=== PATIENT | male | born 1945 | race Caucasian/White ===

== ENCOUNTER 2022-04-12 11:26 | Outpatient (CLI) | payer MEDICARE, SELFPAY ==
[2022-04-12 18:09] LABS: Chloride* 99 mmol/L (96-114)
[2022-04-12 18:10] LABS: Albumin* 3.8 g/dL (3.3-5.0); Potassium* 4.3 mmol/L (3.6-5.1); Sodium* 135 mmol/L (135-149)
[2022-04-12 18:12] LABS: Bilirubin Total* 0.3 mg/dL (0.1-1.5); Creatinine* 0.9 mg/dL (0.5-1.5); Estimated Glomerular Filt Rate 87 ml/min
[2022-04-12 18:13] LABS: Alanine Aminotransferase* 19 U/L (4-50); Alkaline Phosphatase* 125 U/L (40-150); Aspartate Amino Transferase* 25 U/L (12-35); Blood Urea Nitrogen* 15 mg/dL (7-30); Calcium* 9.1 mg/dL (8.4-10.6); Carbon Dioxide* 26 mmol/L (20-32); Glucose* 112 mg/dL (60-115); Total Protein* 6.4 g/dL (6.0-8.3)
[2022-04-12 18:59] LABS: PSA Diagnostic* < 0.06 ng/mL (0.10-4.00)
== END 2022-04-12 11:27 | disposition home or self-care (01) ==
PROVIDERS: PCP Internal Medicine; Visit Provider Family Medicine
DX: R53.83 Other fatigue (principal); C61 Malignant neoplasm of prostate; I10 Essential (primary) hypertension
CPT/HCPCS: 80053; 84153

== ENCOUNTER 2023-04-11 08:15 | Outpatient (CLI) | payer MEDICARE, SELFPAY | END 2023-04-11 08:16 | disposition home or self-care (01) | LOC: NFLDREF 04-12 06:26 | PROVIDERS: PCP Internal Medicine; Referring Provider Internal Medicine; Visit Provider Internal Medicine | DX: I10 Essential (primary) hypertension (principal); C61 Malignant neoplasm of prostate; G47.33 Obstructive sleep apnea (adult) (pediatric); Z13.6 Encounter for screening for cardiovascular disorders | CPT/HCPCS: 80053; 80061; 84153 ==

== ENCOUNTER 2024-05-09 08:35 | Outpatient (CLI) | payer MEDICARE, SELFPAY ==
--- OUTSIDE RECORDS SUMMARY | 2024-05-09 13:15 | XMS_ITS | Clinical Summary ---
Author Organization [employer] [facility] s & [facility] Address [place], [place] [address] Care Team Providers Care Press Tender Smoke Signal Name Role Phone Aamir Cross MD Primary Care Provider [phone] Allergies Active Allergy Reactions Criticality Noted Date Comments Ibuprofen Other - Describe In Comment Field 10/27/2013 ulcer ulcer Prednisone Other - Describe In Comment Field 10/27/2013 ulcers Other reaction(s): Other (see comments) ulcer Medications Medication Sig Dispensed Refills Start Date End Date Status losartan (COZAAR) 100 mg tablet 05/29/2015 Active clindamycin 1% (CLEOCIN-T) 1 % gel 05/01/2016 Active amoxicillin (AMOXIL) 500 mg capsule TAKE 4 CAPSULES BY MOUTH 1 HOUR BEFORE DENTAL APPOINTMENT 09/02/2021 Active ketoconazole 2% shampoo (NIZORAL) 2 % shampoo USE 1 APPLICATION TOPICALLY TWICE A WEEK NEEDED FOR FOLLICULITIS 06/29/2022 Active Vuity 1.25 % ophthalmic solution INSTILL 1 DROP IN RIGHT EYE THREE TIMES A DAY 06/15/2022 Active sulfacetamide, acne, 10 % susp 08/04/2021 Active clindamycin 1% (CLEOCIN-T) 1 % lotion APPLY TOPICALLY TO THE SCALP EVERY DAY NEEDED 03/06/2022 Active diltiazem CR (TIAZAC; TAZTIA XT) 360 mg capsule Take 360 mg by mouth once daily. 06/05/2022 Active fluocinonide 0.05 TOPICAL (LIDEX) 0.05 % external solution APPLY TO AFFECTED AREA(S) TWICE A DAY 06/29/2022 Active durable medical equipment (DME)Indications:D DD (degenerative disc disease), cervical,Cervical radiculopathy,Cerv ical myofascial pain syndrome Cervical Home Traction Unit Length of use: 99 months 1 Each 08/20/2023 Active tractionIndication s:DDD (degenerative disc disease), cervical,Cervical radiculopathy,Cerv ical myofascial pain syndrome Cervical traction home unit for home use for 99 months - The patient has a musculoskeletal or neurological impairment requiring traction equipment - The home cervical traction device has been demonstrated to the patient and the patient tolerated the selected device in PHYSICAL THERAPY - He will need greater than 20 pounds of cervical traction in the home setting. 1 Each 08/22/2023 Active Active Problems Problem Noted Date Diagnosed Date Elevated PSA 08/21/2016 Lumbar foraminal stenosis 05/22/2016 Spondylolisthesis of lumbosacral region 05/22/20 16 Lumbar radicular pain 05/22/2016 Benign non-nodular prostatic hyperplasia with lower urinary tract symptoms 10/27/2015 Erectile disorder, generalized, mild 10/27/2015 Hemorrhage of gastrointestinal tract, unspecifie d 11/16/2007 Iron deficiency anemia, unspecified 11/16/2007 Unspecified essential hypertension 11/16/2007 Encounters Date Type Department Care Team Description 04/07/2024 1:30 PM CDT Procedure Only [facility] [address] [place] [address] Verónica Pollock L Ac Acupuncture 04/07/2024 Travel 03/06/2024 10:00 AM CDT Procedure Only [facility] [address] [place] [address] Verónica Pollock L Ac Acupuncture 03/06/2024 Travel from Last 3 Months Immunizations Name Administration Dates Next Due Pneumococcal Poly,23-Valent (Pneumovax) 09/24/19 08 Social History Tobacco Use Types Packs/Day Years Used Date Smoking Tobacco: Former Smokeless Tobacco: Never Tobacco Cessation:Counseling Given: Yes Comments:quit in 1999 Alcohol Use Standard Drinks/Week Comments Not Asked 0 (1 standard drink = 0.6 oz pur e alcohol) Social Connections Answer Date Recorded Frequency of Communication with Friends and Fami ly 0 11/13/2023 Financial Resource Strain Answer Date R ecorded Difficulty of Paying Living Expenses 3 11/13/2023 Difficulty of Paying Living Expenses Not on file 11/13/2023 Food Insecurity Answer Date Recorded Worried About Running Out of Food in the Last Ye ar 1 11/13/2023 Transportation Needs Answer Date Record ed Lack of Transportation (Medical) 1 11/13/2023 Housing Stability Answer Date Recorded Unable to Pay for Housing in the Last Year 1 11/13/2023 Sex and Gender Information Value Date Recorded Sex Assigned at Not on file Gender Identity Not on file Sexual Orientation Not on file Obstetrics History Last Filed Vital Signs Vital Sign Reading Time Taken Comments Blood Pressure 113/66 06/21/2023 11:26 AM CDT Pulse 62 06/21/2023 11:26 AM CDT Temperature 36.7 ??C (98.1 ??F) 06/21/2023 11:26 AM C DT Respiratory Rate 16 08/21/2016 10: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 Oxygen Saturation 94% 06/21/2023 11:26 AM CDT Inhaled Oxygen Concentration - - Weight 83.5 kg (184 lb) 07/19/2022 10:32 AM CDT Height 165.1 cm (5' 5) 06/23/2016 10:53 AM CDT Body Mass Index 30.62 06/23/2016 10:53 AM CDT Plan of Treatment Upcoming Encounters Date Type Department Care Team (Late st Contact Info) Description 05/12/2024 11:00 AM CDT Procedure Only [facility] [address] [place] [address] Verónica Pollock L Ac [address] [place] [address] Health Maintenance Due Date Last Done Comments Tdap 12/03/1956 Depression screening for age 12+ 1955 Tetanus booster 1963 Zoster (shingles) series for age 50+ (1 of 2) 12/03/1993 Medicare Wellness for age 65+ 12/03/2008 Pneumococcal series for age 65+ (2 of 2 - PCV) 12/03/2008 09/24/2007 BMI (ht and wt on same day) for age 18+ 06/23/2017 06/23/2016, 10/27/2015 COVID-19 vaccine series ( season) 2023 07/26/2023, 04/03/2023, 06/20/2022, Additional history exists Influenza for age 65+ 05/25/2024 Medical Devices Implanted Type Area Senior Contracts Administrator Device Identifier Shelf Expiration Date Model / Serial / Lot Ancr Bionx 6x16.5 W/Herculine [id number] - [id number] Implanted:Qty: 1 on 05/17/2007 at [facility] Left: Shoulder [employer] SURGICAL/CONMED [id number]# / / [id number] Description:LINVATEC DUET RDZ TURE ANCHOR Ancr Bionx 6x16.5 W/Herculine [id number] - [id number] Implanted:Qty: 1 on 05/17/2007 at [facility] Left: Shoulder [employer] SURGICAL/CONMED [id number]# / / [id number] Description:LINVATEC DUET RDZ TURE ANCHOR Ancr Bionx 6x16.5 W/Herculine [id number] - [id number] Implanted:Qty: 1 on 05/17/2007 at [facility] Left: Shoulder [employer] SURGICAL/CONMED [id number]# / / [id number] Description:LINVATEC SUTURE ANCHOR Shell Acetab 52mm R3 3h - [id number] Implanted:Qty: 1 on 04/06/2010 at [facility] Right: Hip [employer] 01/23/2020 [id number]# / / [id number] Liner Acetab [id number] R3 0deg Xlpe - [id number] Implanted:Qty: 1 on 04/06/2010 at [facility] Right: Hip [employer] 02/22/2019 [id number]# / / [id number] Stem Fem Anthlgy #5 Porous - [id number] Implanted:Qty: 1 on 04/06/2010 at [facility] Right: Hip [employer] 02/22/2017 [id number]# / / [id number] Head Fem 36mm Plus 0 09/06 Taper C - [id number] Implanted:Qty: 1 on 04/06/2010 at [facility] Right: Hip [employer] 11/23/2019 [id number]# / / [id number] Procedures Procedure Name Priority Date/Time Associated Diagnosis Comments ACUPUNCTURE PLAN OF CARE Routine 024 1:29 PM CDT Other low back pain ACUPUNCTURE PLAN OF CARE Routine 024 9:57 AM CDT Other low back pain from Last 3 Months Advance Directives Documents on File Type Date Recorded Patient Cloth Shrinking Supervisor Expl anation Healthcare Directive 05/20/2007 SIGNED 01/06/2000 * Full Code (Latest Code Status on File) Date Activated Date Inactivated Comments 04/06/2010 5:31 PM 04/09/2010 3:32 PM * Full Code Date Activated Date Inactivated Comments 04/06/2010 1:01 PM 04/06/2010 5:31 PM * Full Code Date Activated Date Inactivated Comments 11/16/2007 11:19 PM 11/18/2007 2:04 PM * Full Code Date Activated Date Inactivated Comments 05/17/2007 8:11 AM 05/17/2007 5:03 PM Care Teams Press Tender Smoke Signal Relationship Specialty Start Date End Date Aamir Cross MD [address] [facility] [place] [address] PCP - General 05/19/15
== END 2024-05-09 08:36 | disposition home or self-care (01) ==
LOC: NFLDREF 13:09
PROVIDERS: PCP Internal Medicine; Referring Provider Internal Medicine; Visit Provider Internal Medicine
DX: I10 Essential (primary) hypertension (principal); Z13.220 Encounter for screening for lipoid disorders; Z12.5 Encounter for screening for malignant neoplasm of prostate; Z85.46 Personal history of malignant neoplasm of prostate
CPT/HCPCS: 80053; 80061; G0103

== ENCOUNTER 2024-05-27 13:44 | Outpatient (CLI) | payer MEDICARE, SELFPAY ==
--- OUTSIDE RECORDS SUMMARY | 2024-05-27 13:47 | XMS_ITS | Clinical Summary ---
Author Organization [employer] [facility] s [facility] Address [place], [place] [address] Care Team Providers Care Regulatory Affairs Specialist Name Role Phone Aamir Cross MD Primary Care Provider [phone] Allergies Active Allergy Reactions Criticality Noted Date [...] Encounters Date Type Department Care Team Description 05/12/2024 11:00 AM CDT Procedure Only [facility] [address] [place] [address] Verónica Pollock L Ac Acupuncture 05/12/2024 Travel 04/07/2024 1:30 PM CDT Procedure Only [facility] [address] [place] [address] Verónica Pollock L Ac Acupuncture 04/07/2024 Travel 03/06/2024 10:00 AM CDT Procedure Only [facility] [address] [place] [address] Verónica Pollock L Ac Acupuncture 03/06/2024 Travel [...] DT Respiratory Rate 16 08/21/2016 10:17 AM 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 Oxygen Saturation 94% 06/21/2023 11:26 AM CDT Inhaled Oxygen Concentration - - Weight 83.5 kg (184 lb) 07/19/2022 10:32 AM CDT Height 165.1 cm (5' 5) 06/23/2016 10:53 AM CDT Body Mass Index 30.62 06/23/2016 10:53 AM CDT Plan of Treatment Upcoming Encounters Date Type Department Care Team (Late st Contact Info) Description 05/27/2024 2:00 PM CDT Ancillary Procedure [facility] [address] [place] [address] 06/09/2024 1:00 PM CDT Procedure Only [facility] [address] [place] [address] Verónica Pollock L Ac [address] [place] [address] 07/21/2024 9:20 AM CDT Office Visit [facility] [address] [place] [address] Vu Franco MD [address] [place] [address] Health Maintenance Due Date Last Done Comments Tdap 12/03/1956 Depression screening for age 12+ 1955 Tetanus booster 1963 Zoster (shingles) series for age 50+ (1 of 2) 12/03/1993 Medicare Wellness for age 65+ 12/03/2008 Pneumococcal series for age 65+ (2 of 2 - PCV) 12/03/2008 09/24/2007 BMI (ht and wt on same day) for age 18+ 06/23/2017 06/23/2016, 10/27/2015 COVID-19 vaccine series (2022- season) 2023 07/26/2023, 04/03/2023, 06/20/2022, Additional history exists Influenza for age 65+ 05/25/2024 Medical Devices Implanted Type Area Cable Ferry Operator Device Identifier Shelf Expiration Date Model / Serial / Lot Ancr Bionx 6x16.5 W/Herculine [id number] - [id number] Implanted:Qty: 1 on 05/17/2007 at [facility] Left: Shoulder [employer]/CONMED [id number]# / / [id number] Description:[employer]AT[employer] DUET RDZ TURE ANCHOR Ancr Bionx 6x16.5 W/Herculine [id number] - [id number] Implanted:Qty: 1 on 05/17/2007 at [facility] Left: Shoulder [employer] SURG[employer]/CONMED [id number]# / / [id number] Description:[employer] DUET RDZ TURE ANCHOR Ancr Bionx 6x16.5 W/Herculine [id number] - [id number] Implanted:Qty: 1 on 05/17/2007 at [facility] Left: Shoulder [employer] SURGICAL/CONMED [id number]# / / [id number] Description:[employer]ATEC SUTURE ANCHOR Shell Acetab 52mm R3 3h - [id number] Implanted:Qty: 1 on 04/06/2010 at [facility] Right: Hip [employer] 01/23/2020 [id number]# / / [id number] Liner Acetab [id number] R3 0deg Xlpe - [id number] Implanted:Qty: 1 on 04/06/2010 at [facility] Right: Hip [employer] 02/22/2019 [id number]# / / [id number] Stem Fem Anthlgy #5 Porous - [id number] Implanted:Qty: 1 on 04/06/2010 at [facility] Right: Hip [employer] 02/22/2017 [id number]# / / [id number] Head Fem 36mm Plus 0 09/06 Taper C - [id number] Implanted:Qty: 1 on 04/06/2010 at [facility] Right: Hip [employer] 11/23/2019 [id number]# / / [id number] Procedures Procedure Name Priority Date/Time Associated Diagnosis Comments ACUPUNCTURE PLAN OF CARE Routine 024 11:03 AM CDT Other low back pain ACUPUNCTURE PLAN OF CARE Routine 024 1:29 PM CDT Other low back pain ACUPUNCTURE PLAN OF CARE Routine 024 9:57 AM CDT Other low back pain from Last 3 Months Advance Directives Documents on File Type Date Recorded 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
[2024-05-27 15:12] VITALS: BP 160/80; PULSE 92; RESP 18
[2024-05-27] MEDS: PERFLUTREN LIPID MICROSPHERES 2 ML VIAL IV (15:14)
--- NOTE | 2024-05-27 15:18 | PM.ST ---
Stress Test Note Date Date of test: 05/27/24 Providers Primary care provider: Aamir Cross Stress test physician: Thanh Knapp Stress Test Note Stress test ordered: Stress Echo Indication for test: chest pain Stress test medicine: Definity Results discussion: Patient is a very nice 78-year-old gentleman who presents here with his for evaluation of chest pain and fatigue that he has when he exercises, he tells me when he walks, over the past couple weeks he has developed centralized chest discomfort, he is referred here by his primary care physician for the above test after discussion the risks benefits and side effects he would like to proceed cardiac stress test medical history report is reviewed entirely. Pretest EKG shows ventricular rate of 82 and a blood pressure [address] wave changes are noted. Standard Aldo protocol is done over a time course of 7 minutes 30 seconds and achieved a metabolic equivalent of 8.9 Mets with a mi maximum heart rate of 141, this is 118% of the maximum. He did develop chest discomfort that resolved during recovery. Review of the tracing showed ST wave depression of 2-3 mm noted V5 V6 also 1.5 mm depression in 2 3 and AVF. This all came back to normal by the end Impression: Positive electrographic tracings of inferior lateral ischemia, conditioning was felt to be good, he was also subjectively positive. Follow up suggested: Await echo interpretation clinical correlation with this will be needed, I did contact the primary care physician, he is placed on 81 mg a day of aspirin, along with nitroglycerin to be used as needed for chest pain, this does not resolve his chest discomfort he is to call 911. He will also decrease his activity, he recovered back to baseline left this testing facility in good condition
== END 2024-05-27 15:13 | disposition home or self-care (01) ==
LOC: STRESS 13:45
PROVIDERS: PCP Internal Medicine; Visit Provider Internal Medicine
DX: R07.89 Other chest pain (principal); R53.83 Other fatigue
CPT/HCPCS: 93016; 93325; 93351; Q9957

== ENCOUNTER 2024-06-17 20:44 | Outpatient (CLI) | payer MEDICARE, SELFPAY ==
--- OUTSIDE RECORDS SUMMARY | 2024-06-17 20:45 | XMS_ITS | Clinical Summary ---
Author Organization [employer] [facility] Address [place], [place] [address] Care Team Providers Care Forge Tender Name Role Phone Aamir Moseley MD Primary Care Provider Allergies Active Allergy Reactions Criticality Noted Date [...] Encounters Date Type Department Care Team Description 06/09/2024 1:00 PM CDT Procedure Only [facility] [address] [place] [address] Verónica Pollock L Ac Acupuncture 06/09/2024 Travel 05/27/2024 2:00 PM CDT Ancillary Procedure [facility] [address] [place] [address] 05/12/2024 11:00 AM CDT Procedure Only [facility] [address] [place] [address] Verónica Pollock L Ac Acupuncture 05/12/2024 Travel 04/07/2024 1:30 PM CDT Procedure Only 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 [address] [facility] [place] [address] Verónica Pollock L Ac [address] [place] [address] 07/24/2024 9:20 AM CDT Office Visit [facility] [address] [place] [address] Vu Franco MD [address] [place] [address] Health Maintenance Due Date Last Done Comments Tdap 12/03/1954 Depression screening for age 12+ 1955 Tetanus booster 1963 Zoster (shingles) series for age 50+ (1 of 2) 12/03/1993 RSV vaccine for adults or (1 - 1-dose 60+ series) 2003 Medicare Wellness for age 65+ 12/03/2008 Pneumococcal series for age 65+ (2 of 2 - PCV) 12/03/2008 09/24/2007 BMI (ht and wt on same day) for age 18+ 06/23/2017 06/23/2016, 10/27/2015 COVID-19 vaccine series (2022-24 season) 2024 07/26/2023, 04/03/2023, 06/20/2022, Additional history exists Influenza for age 65+ 05/25/2024 Medical Devices Implanted Type Area Line Analyst Device Identifier Shelf Expiration Date Model / Serial / Lot Ancr Bionx 6x16.5 W/Herculine [id number] - [id number] Implanted:Qty: 1 on 05/17/2007 at [facility] Left: Shoulder [employer] SURGICAL/CONMED [id number]# / / [id number] Description:LINVATEC DUET RDZ TURE ANCHOR Ancr Bionx 6x16.5 W/Herculine [id number] - [id number] Implanted:Qty: 1 on 05/17/2007 at [facility] Left: Shoulder [employer] SURGICAL/CONMED [id number]# / / [id number] Description:LINVATEC DUET RDZ TURE ANCHOR Ancr Bionx 6x16.5 W/Herculine [id number] - [id number] Implanted:Qty: 1 on 05/17/2007 at [facility] Left: Shoulder [employer] SURGICAL/CONMED [id number]# / / [id number] Description:LINVATEC SUTURE ANCHOR Shell Acetab 52mm R3 3h - [id number] Implanted:Qty: 1 on 04/06/2010 at [facility] Right: Hip [employer] 01/23/2020 [id number]# / / [id number] Liner Acetab 06u40gh R3 0deg Xlpe - [id number] Implanted:Qty: 1 on 04/06/2010 at [facility] Right: Hip [employer] 02/22/2019 [id number]# / / [id number] Stem Fem Anthlgy #5 Porous - [id number] Implanted:Qty: 1 on 04/06/2010 at [facility] Right: Hip [employer] 02/22/2017 [id number]# / / [id number] Head Fem 36mm Plus 0 09/06 Taper C - [id number] Implanted:Qty: 1 on 04/06/2010 at [facility] Right: Hip [employer] 11/23/2019 [id number]# / / [id number] Procedures Procedure Name Priority Date/Time Associated Diagnosis Comments ACUPUNCTURE PLAN OF CARE Routine 06/09/2024 12:59 PM CDT Other low back pain ECHO STRESS EXRCSE W CONTRAST IMAGE ONLY W COLOR W LTD DOPPLER Routine 05/27/2024 2:55 PM CDT Other fatigue SOB (shortness of breath) on exertion ACUPUNCTURE PLAN OF CARE Routine 05/12/2024 11:03 AM CDT Other low back pain ACUPUNCTURE PLAN OF CARE Routine 04/07/2024 1:29 PM CDT Other low back pain from Last 3 Months Results * ECHO STRESS EXRCSE W CONTRAST IMAGE ONLY W COLOR W LTD DOPPLER (05/27/2024 2:55 PM CDT) LVEDD 4.7 cm Anatomical Region Laterality Modality Ultrasound 05/27/2024 2:10 PM CDT Narrative 05/27/2024 3:33 PM CDT STRESS ECHOCARDIOGRAM STEVE COLLIER ? Accession#: ?? [id number] : ?1945 78 years Study Date: ?? 05/27/2024 2:10:25 PM Gender: M ?BP: ? 120/70 mmHg Height: 165.00 cm ?BSA: ?1.90 m? ? ? Weight: 83.00 kg ? Tech: ? MJW ? Referring MD: AAMIR MOSELEY Site: ? [facility] Reading Location: Mobile-OP Patient Location: Outpatient. Procedure: Stress Echo, Color Doppler, Limited Spectral Doppler and Contrast. Aldo stress echo. Indication for study: Chest Pain Cardiac Rhythm: Regular and with premature ventricular contractions.Study quality: Good. Final Impressions: 1. Abnormal stress echocardiogram. Post exercise, hypokinesis of basal to mid anterolateral and mid anterior segments. Post stress, normal global systolic function with an estimated EF of 55 to 60%. 2. Positive stress echo for ischemia. 3. Maximum stress test with 101.1% of age predicted maximum heart rate achieved. 4. During stress exam the patient developed chest pain. 5. Echo contrast was administered to enhance visualization of all left ventricular segments. 6. See separate report for EKG interpretation. 7. Symptoms resolved in 15 minutes. Stress Data: ? HR ?Systolic Diastolic Time Duration Minutes Seconds Baseline 87 bpm ?120 ?70 mmHg ?7 :30 ? Peak ? 141 bpm ?? 184 ?86 mmHg Max Pred HR ?140 % of Max ? 101% Double Product [id number] Echo Findings:This is a positive stress echo test for ischemia. Post stress, normal left ventricular size, normal global systolic function with an estimated EF of 55 to 60%. LV regional wall motion abnormalities are present post exercise. EKG:See separate report for EKG interpretation. Exam Protocol:The patient presents with no significant symptoms at baseline. The patient exercised 7 min 30 sec to stage II according to the Aldo stress echo protocol. Test terminated due to chest pain. 7.0 METS were achieved. The patient achieved a heart rate of 141 bpm which is 101.1% of maximum predicted heart rate. Maximum systolic blood pressure was 184 [place] [address]. Maximum stress test with 101.1% of age predicted maximum heart rate achieved. The blood pressure response was normal. The patient developed chest pain during the stress exam. Symptoms resolved with rest. Symptoms resolved in 15 minutes. Intermediate (1-3% annual mortality rate) non invasive risk stratification. Chamber Sizes and Function Normal left ventricular size, normal global systolic function. LV regional wall motion abnormalities are not present. MEASUREMENTS AND CALCULATIONS 2-D Measurements and LV Function: LVID (d) 4.7 cm LV FS% (2D) 26 % LVID (s) 3.5 cm HR ?87 bpm IVS (d) ??0.9 cm LVPW (d) 1.0 cm LA ? 3.8 cm Contrast documentation: 4 ml diluted Definity, lot #[id number], [facility]# [id number] was administered peripherally to enhance visualization of all left ventricular segments. . This study was interpreted by an [facility] accredited facility. CC: [facility] ([facility]) [facility]. ??Final ?? Procedure Note Chepe King MD - 05/27/2024 STRESS ECHOCARDIOGRAM STEVE COLLIER : 1945 78 years Study Date: 05/27/2024 2:10:25 PM Gender: M BP: 120/70 mmHg Height: 165.00 cm BSA: 1.90 m? ? ? Weight: 83.00 kg Tech: DIGNA Referring MD: AAMIR MOSELEY Site: [facility] Reading Location: Mobile-OP Patient Location: Outpatient. Procedure: Stress Echo, Color Doppler, Limited Spectral Doppler andContrast. Aldo stress echo. Indication for study: Chest Pain Cardiac Rhythm: Regular and with premature ventricular contractions.Studyquality: Good. Final Impressions: 1. Abnormal stress echocardiogram. Post exercise, hypokinesis of basal tomid anterolateral and mid anterior segments. Post stress, normal globalsystolic function with an estimated EF of 55 to 60%. 2. Positive stress echo for ischemia. 3. Maximum stress test with 101.1% of age predicted maximum heart rateachieved. 4. During stress exam the patient developed chest pain. 5. Echo contrast was administered to enhance visualization of all leftventricular segments. 6. See separate report for EKG interpretation. 7. Symptoms resolved in 15 minutes. Stress Data: HR Systolic Diastolic Time Duration Minutes Seconds Baseline 87 bpm 120 70 mmHg 7 :30 Peak 141 bpm 184 86 mmHg Max Pred HR 140 % of Max 101% Double Product [id number] Echo Findings:This is a positive stress echo test for ischemia. Poststress, normal left ventricular size, normal global systolic function withan estimated EF of 55 to 60%. LV regional wall motion abnormalities arepresent post exercise. EKG:See separate report for EKG interpretation. Exam Protocol:The patient presents with no significant symptoms atbaseline. The patient exercised 7 min 30 sec to stage II according to [facility] stress echo protocol. Test terminated due to chest pain. 7.0 METSwere achieved. The patient achieved a heart rate of 141 bpm which is101.1% of maximum predicted heart rate. Maximum systolic blood pressurewas 184 [place] [address]. Maximum stress testwith 101.1% of age predicted maximum heart rate achieved. The bloodpressure response was normal. The patient developed chest pain during thestress exam. Symptoms resolved with rest. Symptoms resolved in 15 minutes.Intermediate (1-3% annual mortality rate) non invasive risk stratification. Chamber Sizes and Function Normal left ventricular size, normal global systolic function. LV regionalwall motion abnormalities are not present. MEASUREMENTS AND CALCULATIONS 2-D Measurements and LV Function: LVID (d) 4.7 cm LV FS% (2D) 26 % LVID (s) 3.5 cm HR 87 bpm IVS (d) 0.9 cm LVPW (d) 1.0 cm LA 3.8 cm Contrast documentation: 4 ml diluted Definity, lot #[id number], [facility]#[id number] was administered peripherally to enhance visualization of allleft ventricular segments. . This study was interpreted by an [facility] accredited facility. CC: [facility] (med records) [facility]. Final Aamir Moseley MD ECHO ORD from Last 3 Months Advance Directives Documents on File Type Date Recorded Patient Quality Control Technician Expl anation Healthcare Directive 05/20/2007 SIGNED 01/06/2000 [...] 8:11 AM 05/17/2007 5:03 PM Care Teams Forge Tender Relationship Specialty Start Date End Date Aamir Moseley MD [address] [place] [address] PCP - General 05/19/15
--- NOTE | 2024-07-01 12:53 | P.SLS_ITS ---
Sleep Study Details Details Interpreting Provider: Jaycee Date of Sleep Study: 06/17/24 Sleep Study Details: STUDY TYPE:? Hospital-based with CPAP titration ? BMI:? 31.3 ORDERING PROVIDER:? Tay INDICATION:? Titration after previous positive study ? SLEEP SUMMARY:? 322.5 minutes total sleep time RESPIRATORY SUMMARY:? The overall AHI for this study was 2.4. CPAP titration was performed to a pressure of 16. And a pressure of 16 supine REM sleep was achieved in AHI was decreased to 5.5. Patient also achieved REM sleep at a pressure of 14 with an AHI of 5.5. I would consider this a successful titration. PERIODIC LIMB MOVEMENTS OF SLEEP:? Preop limb movement index 80.2, index with arousal 4.1 CARDIAC:? Awake 73 asleep 67 PVCs were noted IMPRESSION:? Successful CPAP titration study at pressures of 14 and 16. RECOMMENDATION: Would initiate CPAP AutoSet pressure 13-17 with close follow- up.
== END 2024-06-17 20:45 | disposition home or self-care (01) ==
LOC: SLEEP 20:44
PROVIDERS: PCP Internal Medicine; Visit Provider Internal Medicine
DX: I10 Essential (primary) hypertension (principal); R06.83 Snoring
CPT/HCPCS: 95811

== ENCOUNTER 2024-06-30 10:10 | Outpatient (CLI) | payer MEDICARE, SELFPAY ==
--- OUTSIDE RECORDS SUMMARY | 2024-06-30 10:16 | XMS_ITS | Clinical Summary ---
Author Organization [employer] [facility] Address [place], [place] [address] Care Team Providers Care Senior Product Development Scientist Name Role Phone Aamir Moseley MD Primary [...] A DAY 06/29/2022 Active durable medical equipment (DME)Indications: DDD (degenerative disc disease), cervical,Cervical radiculopathy,Cer vical myofascial pain syndrome Cervical Home Traction Unit Length of use: 99 months 1 Each 08/20/2023 Active tractionIndicatio ns:DDD (degenerative disc disease), cervical,Cervical radiculopathy,Cer vical myofascial pain syndrome Cervical traction home unit [...] the home setting. 1 Each 08/22/2023 Active rosuvastatin (Crestor) 20 mg tabletIndications :Unstable angina (HC) Take 1 Tablet (20 mg) by mouth at bedtime. 90 Tablet 4 06/19/2024 Active Active Problems Problem Noted Date Diagnosed Date Elevated PSA 08/21/2016 Lumbar foraminal stenosis 05/22/2016 Spondylolisthesis of lumbosacral region 05/22/20 16 Lumbar radicular pain 05/22/2016 Benign non-nodular prostatic hyperplasia with lower urinary tract symptoms 10/27/2015 Erectile disorder, generalized, mild 10/27/2015 Hemorrhage of gastrointestinal tract, unspecifie d 11/16/2007 Iron deficiency anemia, unspecified 11/16/2007 Unspecified essential hypertension 11/16/2007 Encounters Date Type Department Care Team Description 06/27/[address] [place] [address] Adrian Handley MD 06/26/[address] [place] [address] Adrian Handley MD Pre Procedure 06/19/2024 3:00 PM CDT Office Visit [facility] [address] [facility] [place] [address] Adrian Handley MD 06/09/2024 1:00 PM CDT Procedure Only [facility] [address] [place] [address] Verónica Pollock L Ac Acupuncture 06/09/2024 Travel 05/27/2024 2:00 PM CDT Ancillary Procedure [facility] [address] [facility] [place] [address] 05/12/2024 11:00 AM CDT Procedure Only [facility] [address] [place] [address] Verónica Pollock L Ac Acupuncture 05/12/2024 Travel 04/07/2024 1:30 PM CDT Procedure Only [facility] [address] [place] [address] Verónica Pollock L Ac Acupuncture 04/07/2024 Travel [...] DT Respiratory Rate 16 08/21/2016 10: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 Oxygen Saturation 94% 06/21/2023 11:26 AM CDT Inhaled Oxygen Concentration - - Weight 83.5 kg (184 lb) 07/19/2022 10:32 AM CDT Height 165.1 cm (5' 5) 06/23/2016 10:53 AM CDT Body Mass Index 30.62 06/23/2016 10:53 AM CDT Plan of Treatment Upcoming Encounters Date Type Department Care Team (Late st Contact Info) Description 07/02/2024 12:00 PM CDT Appointment [facility] [address] [address] Joseph Almanza MD [address] [address] 07/14/2024 2:00 PM CDT Procedure Only [facility] [address] [place] [address] Verónica Pollock L Ac [address] [place] [address] 07/24/2024 9:20 AM CDT Office Visit [facility] [address] [place] [address] uV Franco MD [address] [place] [address] Health Maintenance Due Date Last Done Comments Tdap 12/03/1954 Depression screening for age 12+ 1955 Tetanus booster 1963 Zoster (shingles) series for age 50+ (1 of 2) 12/03/1993 Medicare Wellness for age 65+ 12/03/2008 Pneumococcal series for age 65+ (2 of 2 - PCV) 12/03/2008 09/24/2007 BMI (ht and wt on same day) for age 18+ 06/23/2017 06/23/2016, 10/27/2015 RSV vaccine for adults or (1 - 1-dose 75+ series) 12/03/2018 COVID-19 vaccine series ( season) 2024 07/26/2023, 04/03/2023, 06/20/2022, Additional history exists Influenza for age 65+ 05/25/2024 Medical Devices Implanted Type Area Estimator And Drafter Device Identifier Shelf Expiration Date Model / Serial / Lot Ancr Bionx 6x16.5 W/Herculine [id number] - [id number] Implanted:Qty: 1 on 05/17/2007 at [facility] Left: Shoulder [employer]/CONMED [id number]# / / [id number] Description:LINVATEC DUET RDZ TURE ANCHOR Ancr Bionx 6x16.5 W/Herculine [id number] - [id number] Implanted:Qty: 1 on 05/17/2007 at [facility] Left: Shoulder [employer] SURGICAL/CONMED [id number]# / / [id number] Description:LINVATEC DUET RDZ TURE ANCHOR Ancr Bionx 6x16.5 W/Herculine [id number] - [id number] Implanted:Qty: 1 on 05/17/2007 at [facility] Left: Shoulder [employer] SURGICAL/CONMED [id number]# / / [id number] Description:LINVATEC SUTURE ANCHOR Shell Acetab 52mm R3 3h - [id number] Implanted:Qty: 1 on 04/06/2010 at [facility] Right: Hip [employer] 01/23/2020 [id number]# / / [id number] Liner Acetab [id number] R3 0deg Xlpe - [id number] Implanted:Qty: 1 on 04/06/2010 at [facility] Right: Hip [employer] 02/22/2019 [id number] / / [id number] Stem Fem Anthlgy #5 Porous - [id number] Implanted:Qty: 1 on 04/06/2010 at [facility] Right: Hip [employer] 02/22/2017 [id number]# / / [id number] Head Fem 36mm Plus 0 09/06 Taper C - [id number] Implanted:Qty: 1 on 04/06/2010 at [facility] Right: Hip [employer] 11/23/2019 [id number]# / / [id number] Procedures Procedure Name Priority Date/Time Associated Diagnosis [...] 05/27/2024 3:33 PM CDT STRESS ECHOCARDIOGRAM STEVE B KOLBY ? Accession#: ?? [id number] : ?1945 78 years Study Date: ?? 05/27/2024 2:10:25 PM Gender: M ?BP: ? 120/70 mmHg Height: 165.00 cm ?BSA: ?1.90 m? ? ? Weight: 83.00 kg ? Tech: ? MJW ? Referring MD: AAMIR MOSELEY Site: ? [facility] Reading Location: Mobile-OP Patient Location: [...] % of Max ? 101% Double Product [id number] Echo Findings:This is a positive stress echo [...] [place] [address]. Maximum stress test with 101.1% of age [...] documentation: 4 ml diluted Definity, lot #[id number], [facility]# [id number] was administered peripherally to enhance visualization of all left ventricular segments. . This study was interpreted by an [facility] accredited facility. CC: [facility] (med records) [facility]. ??Final ?? Procedure Note Chepe King MD - 05/27/2024 STRESS ECHOCARDIOGRAM STEVE COLLIER : 1945 78 years Study Date: 05/27/2024 2:10:25 PM Gender: M BP: 120/70 mmHg Height: 165.00 cm BSA: 1.90 m? ? ? Weight: 83.00 kg Tech: DIGNA Referring MD: AAMIR MOSELEY Site: [facility] Reading Location: Mobile-OP Patient Location: [...] 140 % of Max 101% Double Product [id number] Echo Findings:This is a positive stress echo test for ischemia. Poststress, normal left ventricular size, normal global systolic function withan estimated EF of 55 to 60%. LV regional wall motion abnormalities arepresent post exercise. EKG:See separate report for EKG interpretation. Exam Protocol:The patient presents with no significant symptoms atbaseline. The patient exercised 7 min 30 sec to stage II according to [facility] stress echo protocol. Test terminated due to chest pain. 7.0 METSwere achieved. The patient achieved a heart rate of 141 bpm which is101.1% of maximum predicted heart rate. Maximum systolic blood pressurewas 184 [place] [address]. Maximum stress testwith 101.1% of age predicted [...] documentation: 4 ml diluted Definity, lot #[id number], [facility]#[id number] was administered peripherally to enhance visualization of allleft ventricular segments. . This study was interpreted by an [facility] accredited facility. CC: [facility]. 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
[2024-06-30 10:53] LABS: Hematocrit 40.9 % (37.0-53.0); Hemoglobin* 13.6 gm/dL (13.5-17.5); Mean Corpuscular HGB Conc 33 gm/dL (32-36); Mean Corpuscular Hemoglobin 30 pg (26-34); Mean Corpuscular Volume 91 fL (80-100); Platelet Count* 212 K/uL (140-440); Red Blood Count 4.49 m/uL (4.30-5.90); White Blood Count* 8.66 K/uL (4.50-11.00)
[2024-06-30 10:58] LABS: Slide Review Reflex No
[2024-06-30 11:07] LABS: Chloride* 104 mmol/L (96-114); Potassium* 4.3 mmol/L (3.6-5.1); Sodium* 137 mmol/L (135-149)
[2024-06-30 11:10] LABS: Alanine Aminotransferase* 20 U/L (4-50); Anion Gap 6 mEq/L (7-15); Blood Urea Nitrogen* 27 mg/dL (7-30); Carbon Dioxide* 27 mmol/L (20-32); Cholesterol* 96 mg/dL (90-199); Estimated Glomerular Filt Rate 76 ml/min; Glucose* 109 mg/dL (60-115); Triglycerides* 53 mg/dL (40-149)
[2024-06-30 11:11] LABS: Calcium* 9.3 mg/dL (8.4-10.6); HDL Cholesterol* 70 mg/dL (>=40); LDL Cholesterol Calculated 15 mg/dL (<100)
== END 2024-06-30 10:11 | disposition home or self-care (01) ==
PROVIDERS: PCP Internal Medicine; Visit Provider Internal Medicine Cardiovascular Disease
DX: Z01.812 Encounter for preprocedural laboratory examination (principal); I20.0 Unstable angina; R06.02 Shortness of breath
CPT/HCPCS: 36415; 80048; 80061; 84460; 85027

== ENCOUNTER 2024-12-02 13:34 | Outpatient (CLI) | payer MEDICARE, SELFPAY | END 2024-12-02 13:35 | disposition home or self-care (01) | LOC: INJ CL 13:34 | PROVIDERS: PCP Internal Medicine; Visit Provider Family Medicine | DX: M54.16 Radiculopathy, lumbar region (principal); M51.369 Other intervertebral disc degeneration, lumbar region without mention of lumbar back pain or lower extremity pain | CPT/HCPCS: 62323; J0702; Q9966 ==

== ENCOUNTER 2025-05-06 09:34 | Outpatient (CLI) | payer MEDICARE, SELFPAY | END 2025-05-06 09:35 | disposition home or self-care (01) | LOC: NFLDREF 05-11 09:40 | PROVIDERS: PCP Internal Medicine; Referring Provider Internal Medicine; Visit Provider Internal Medicine | DX: I10 Essential (primary) hypertension (principal); Z85.46 Personal history of malignant neoplasm of prostate; Z13.6 Encounter for screening for cardiovascular disorders; Z12.5 Encounter for screening for malignant neoplasm of prostate | CPT/HCPCS: 80053; 80061; G0103 ==

== ENCOUNTER 2025-09-13 19:54 | Emergency (ER) | payer MEDICARE, SELFPAY ==
--- OUTSIDE RECORDS SUMMARY | 2025-09-13 19:56 | XMS_ITS | Clinical Summary ---
Author Organization [facility] Address [address] [place] [address] Care Team Providers Care Mothercraft Nurse Name Role Phone Aamir Cross MD Primary Care Provider [phone] Allergies Active AllergyReactionsCriticalityNoted DateCommentsIbuprofenOther - Describe In Comment Field10/27/2013 ulcer ulcer PrednisoneOther - Describe In Comment Field10/27/2013 ulcers Other reaction(s): Other (see comments) ulcer Medications MedicationSigDispense QuantityRefillsLast FilledStart DateEnd DateStatus losartan (COZAAR) 100 mg tablet 05/29/2015ctive amoxicillin (AMOXIL) 500 mg capsule TAKE 4 CAPSULES BY MOUTH 1 HOUR BEFORE DENTAL YNLJLOUULNV59/10/2021ctive ketoconazole 2% shampoo (NIZORAL) 2 % shampoo USE 1 APPLICATION TOPICALLY TWICE A WEEK NEEDED FOR UXPZYUFWQXFW86/06/2022 Active Vuity 1.25 % ophthalmic solution INSTILL 1 DROP IN RIGHT EYE THREE TIMES A DAY06/15/2022ctive sulfacetamide, acne, 10 % susp 08/04/2021ctive clindamycin 1% (CLEOCIN-T) 1 % lotion APPLY TOPICALLY TO THE SCALP EVERY DAY AADKCS5603/06/2022ctive diltiazem CR (TIAZAC; TAZTIA XT) 360 mg capsule Take 360 mg by mouth once daily.06/05/2022ctive fluocinonide 0.05 TOPICAL (LIDEX) 0.05 % external solution APPLY TO AFFECTED AREA(S) TWICE A DAY06/29/2022ctive rosuvastatin (Crestor) 20 mg tablet Indications:Unstable angina (HC)Take 1 Tablet (20 mg) by mouth at bedtime. 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 Up to 3 tablets in 15 minutes. 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 90 Tablet 5ActiveHospital, Clinic, or Other Facility Administered Medication Ordered DoseRouteFrequencyStart DateEnd DateStatus hylan G-F 20 48 mg injection (SYNVISC ONE) Indications:Primary osteoarthritis of left knee48 mgIArticONE TIME08/19/2025 08/19/2025Ended hylan G-F 20 48 mg injection (SYNVISC ONE) Indications:Primary osteoarthritis of right knee48 mgIArticONE TIME08/19/2025 08/19/2025Ended Active Problems ProblemNoted DateDiagnosed DateElevated PSA08/21/2016Lumbar foraminal stenosis 05/22/2016Spondylolisthesis of lumbosacral flzfnz5305/22/2016Lumbar radicular pain 05/22/2016Benign non-nodular prostatic hyperplasia with lower urinary tract kvegxslm90/03/2016Erectile disorder, generalized, mild10/27/2015Hemorrhage of gastrointestinal tract, kszfifvkjij71/23/2008Iron deficiency anemia, unspecified 11/16/2007Unspecified essential shhokezqcxdd89/23/2008 Encounters DateTypeDepartmentCare LawkFfxbuszmebq53/05/2025 10:00 AM CSTProcedure Only [facility] [address] [place] [address] Verónica Pollock [place] Vfrvhxebftq01/05/7424Xniixv07/02/3562Jhlrfk47/26/2025 1:40 PM CSTOffice Visit [facility] [address] [place] [address] Vu Franco MD Musculoskeletal Problem (Bilateral osteoarthritis of the knees)08/19/2025Travel 08/19/2025Telephone [facility] [address] [place] [address] Vu Franco MD Zfxtiuzjqxt59/03/2025 11:00 AM CSTOffice Visit [facility] [address] [place] [address] uV Franco MD Musculoskeletal Problem (Follow up, bilateral knee osteoarthritis)07/27/2025 Lvewxl5707/25/20257744Mqxwne51/24/2025 10:30 AM CDTProcedure Only [facility] [address] [place] [address] Verónica Pollock [place] Ac Coqpcfbuqze16/23/2025Travelfrom Last 3 Months Immunizations ImmunizationAdministration DatesNext DuePneumococcal Poly,23-Valent (Pneumovax) 09/24/2007 Social History Tobacco UseTypesPacks/DayYears UsedDateSmoking Tobacco: FormerSmokeless Tobacco: Never Tobacco Cessation:Counseling Given: Yes Comments:quit in 1999 Alcohol UseStandard Drinks/WeekCommentsNot Asked0 (1 standard drink = 0.6 oz pure alcohol)Social ConnectionsAnswerDate RecordedDo you often feel lonely or isolated from those around you?Financial Resource StrainAnswerDate RecordedDifficulty of Paying Living Qppgkmar375/21/2025Difficulty of Paying Living ExpensesNot on file11/14/2024Food InsecurityAnswerDate RecordedDo you worry your food will run out before you are able to buy more? Transportation NeedsAnswerDate RecordedDoes lack of transportation keep you from medical appointments?Does lack of transportation keep you from work, meetings or getting things that you need?Housing StabilityAnswerDate RecordedWhat is your housing situation today?Interpersonal Safety AnswerDate RecordedAre you being hit, kicked, pushed or yelled at (see row info)?No07/02/2024Interpersonal Safety Abuse 12 - 18Not on file07/02/2024 Interpersonal Safety Ambulatory VulnerabilityNot on file07/02/2024Utilities AnswerDate RecordedDo you have trouble paying for utilities (for example, heat, electricity, water, phone)?Sex and Gender InformationValueDate RecordedSex Assigned at BirthNot on fileLegal LnrTfhk3010/07/2012 7:09 AM 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 Gender IdentityNot on fileSexual OrientationNot on file Last Filed Vital Signs Vital SignReadingTime TakenCommentsBlood Zcjmxtlm759/6508/19/2025 1:51 PM 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 Kslus540108/19/2025 1:51 PM OVLTggvuimbqdc04.4 ??C (97.6 ??F)05/27/2025 11:19 AM CDTRespiratory Lyoi4067 3:32 PM CDTOxygen Qadepbzyqg48%08/19/2025 1:51 PM CSTInhaled Oxygen Concentration--Xhbcef27.5 kg (173 lb)07/27/2025 11:08 AM BOCUrdvkf698.1 cm (5' 5)07/02/2024 10:43 AM CDTBody Mass Index28.7907/02/2024 10:43 AM CDT Plan of Treatment DateTypeDepartmentCare Team (Latest Contact Info)Vsuhcdlgddi47/15/2026 11:30 AM CSTProcedure Only [facility] [address] [place] [address] Verónica Pollock L Ac [address] [place] [address] Health MaintenanceDue DateLast DoneCommentsTetanus awnfegl4912/03/1954Depression screening for age 12+1955Zoster (shingles) series for age 50+ (1 of 2) 12/03/1993Pneumococcal series for age 50+ (2 of 2 - PCV) Medicare Wellness for age 65+12/03/2008MI (ht and wt on same day) for age 18+ , 10/27/2015RSV vaccine for adults or (1 - 1-dose 75+ series)12/03/2018Influenza Vaccine (#1)5COVID-19 vaccine series (2024- season)610/05/2025, 02/19/2025, 07/25/2024, Additional history existsHepatitis B series for 19+Aged OutNo longer eligible based on patient's age to complete this topic Medical Devices ImplantedTypeAreaManufacturerDevice IdentifierShelf Expiration DateModel / Serial / LotAncr Bionx 6x16.5 W/Herculine [id number] - [id number] [facility] ShoulderLINVATEC DESAI SURGICAL/[id number]# / / [id number]:LINVATEC DUET SUTURE ANCHORAncr Bionx 6x16.5 W/Herculine [id number] - [id number] Implanted:Qty: 1 [facility] ShoulderLINVATEC DESAI SURGICAL/[id number]# / / [id number]:LINVATEC DUET SUTURE ANCHORAncr Bionx 6x16.5 W/Herculine [id number] - [id number] Implanted:Qty: 1 [facility] ShoulderLINVATE DESAI SURGICAL/[id number]# / / [id number]:LINVATEC SUTURE ANCHORShell Acetab 52mm R3 3h - [id number] Implanted:Qty[facility] 1 [facility] Hip [employer] MQPGQUZWKSFE77/01/[id number]# / / [id number] Acetab 50t93bd R3 0deg Xlpe - [id number] Implanted:Qty[facility] 1 [facility] [employer] PCKUUFRBZXRQ86/01/[id number]# / / [id number] Fem Anthlgy #5 Porous - [id number] Implanted:Qty: 1 [facility] [employer] WHRGILTBWNWP12/01/[id number]# / / [id number] Fem 36mm Plus 0 09/06 Taper C - [id number] Implanted:Qty: 1 [facility] [employer] CHVYWOMPHOGG45/01/[id number]# / / [id number] Procedures Procedure NamePriorityDate/TimeAssociated DiagnosisCommentsACUPUNCTURE PLAN OF PCCQNmcuvao56/05/2025 9:57 AM 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 Other low back pain ACUPUNCTURE PLAN OF ZAOMZnxxzap05/24/2025 10:30 AM CDT Other low back pain from Last 3 Months Insurance Advance Directives TypeDate RecordedPatient RepresentativeExplanationHealthcare Directive05/20/2007 SIGNED 01/06/2000 * Full Code (Latest Code Status on File) Date ActivatedDate InactivatedComments04/06/2010 5:31 PM04/09/2010 3:32 PM * Full Code Date ActivatedDate InactivatedComments04/06/2010 1:01 PM04/06/2010 5:31 PM * Full Code Date ActivatedDate InactivatedComments11/16/2007 11:19 PM2 2:04 PM * Full Code Date ActivatedDate InactivatedComments05/17/2007 8:11 AM05/17/2007 5:03 PM Care Teams Team MemberRelationshipSpecialtyStart DateEnd Date Aamir Cross MD [address] [place] [address] [facility] - General05/19/15
[2025-09-13 19:59] VITALS: BP 148/95; PULSE 132; RESP 18; TEMP 36.8; O2SAT 95; BMI 28.3
--- NOTE | 2025-09-13 21:29 | ED_ITS ---
HPI - General Adult General Date Seen: 09/13/25 Chief complaint: Arrhythmia/Palpitations Stated complaint: A-fib Time Seen by Provider: 09/13/25 21:26 History of Present Illness HPI narrative: 79 yo M who has a medical history including coronary disease with abnormal stress test year go but ultimately had a CT that did not require any stents, hypertension, sleep apnea. He presents to the ER today from home with his for evaluation of palpitations and feeling a little bit queasy. He has been he feeling healthy and well lately for the past couple weeks but does note that he has had a couple of spells of some irregular heartbeat that were very brief over the past couple of months. Tonight he was at home watching 60 minutes this evening when he just started to feel little bit of an uneasy odd feeling in felt some palpitations and his left sternal border. He checked his pulse and felt to be irregular. It seems to be fast and then slow. He was not having chest pain. He was not short of breath. He was not lightheaded or fainting. Given the irregular heartbeat, he came to the ER to be checked out. Related Data Home Medications ?Medication ?Instructions ?Recorded ?Confirmed aspirin 81 mg capsule 81 mg PO QDAY 07/09/2409/13 nitroglycerin 0.4 mg sublingual 0.4 mg sublingual ONCE 07/09/24 09/13/25 tablet isosorbide mononitrate 30 mg 30 mg PO QAM 05/13/25 tablet,extended release 24 hr Previous Rx's ?Medication ?Instructions ?Recorded ketoconazole 2 % shampoo 1 applic topical 2XW PRN 03/15 folliculitis #120 mL clindamycin phosphate 1 % lotion 1 applic topical OZIEL Y #60 mL 11/27/23 fluocinonide 0.05 % topical 1 applic topical BID #60 m L 11/27/23 solution celecoxib 100 mg capsule 100 mg PO BID #60 caps 05/14 lidocaine 5 % topical patch 1 patch topical Q24H #30 e a 10/20/24 diltiazem HCl 360 mg capsule,24 360 mg PO DAILY #90 ca ps 02/24/25 hr,extended release amoxicillin 500 mg capsule 2,000 mg (4 x 500 mg) PO ON CE #4 07/22/25 caps losartan 100 mg tablet 100 mg PO QDAY #90 tabs 06/25 05/18 rosuvastatin 20 mg tablet 20 mg PO QAM #90 tabs apixaban 2.5 mg tablet (Eliquis) 2.5 mg PO BID #60 tab s 09/13/25 Allergies Allergy/AdvReac Type Severity Reaction Status Date / Time ibuprofen Allergy Intermediate ulcers Verified 08/26/25 15:24 prednisone Allergy Intermediate ulcers Verified 08/26/25 15:24 [facility] Medical History Varicocele present on ultrasound of scrotum ?I86.1 - Scrotal varices (ICD-10) Constipation ?K59.00 - Constipation, unspecified (ICD-10) Coronary artery disease ?I25.10 - Atherosclerotic heart disease of [place] coronary artery without angina pectoris (ICD-10) History of colon polyps ?Z86.0100 - Personal history of colon polyps, unspecified (ICD-10) Sensorineural hearing loss ?H90.5 - Unspecified sensorineural hearing loss (ICD-10) History of nonmelanoma skin cancer ?Z85.828 - Personal history of other malignant neoplasm of skin (ICD-10) HTN (hypertension) ?I10 - Essential (primary) hypertension (ICD-10) Obstructive sleep apnea syndrome (05/06/12) ?G47.33 - Obstructive sleep apnea (adult) (pediatric) (ICD-10) Positive cardiac stress test ?R94.39 - Abnormal result of other cardiovascular function study (ICD-10) Chronic neck and back pain ?M54.2 - Cervicalgia (ICD-10) ?M54.9 - Dorsalgia, unspecified (ICD-10) ?G89.29 - Other chronic pain (ICD-10) Aortic calcification ?I70.0 - Atherosclerosis of aorta (ICD-10) Surgical History Malignant neoplasm of prostate (2016) ?C61 - Malignant neoplasm of prostate (ICD-10) History of urethral stricture (1971) ?Z87.448 - Personal history of other diseases of urinary system (ICD-10) History of trigger finger (10/17/13) ?Z87.39 - Personal history of other diseases of the musculoskeletal system and connective tissue (ICD-10) History of amblyopia (1964) ?Z86.69 - Personal history of other diseases of the nervous system and sense organs (ICD-10) History of ankle surgery (2012) ?Z98.890 - Other specified postprocedural states (ICD-10) History of cataract surgery (2011) ?Z98.49 - Cataract extraction status, unspecified eye (ICD-10) History of arthroscopy of both shoulders ?Z98.890 - Other specified postprocedural states (ICD-10) History of total replacement of both hip joints ?Z96.643 - Presence of artificial hip joint, bilateral (ICD-10) Status post carpal tunnel release of both wrists (05/06/12) ?Z98.890 - Other specified postprocedural states (ICD-10) History of colonoscopy ?Z98.890 - Other specified postprocedural states (ICD-10) History of arthroscopy of both knees ?Z98.890 - Other specified postprocedural states (ICD-10) Social History What is your current living situation?: I presently have a place to live Problems where you live: no known problems In the past 12 months, utilities in danger of being shut off: no In past 12 months, lack of transportation kept you from medical appts, meetings, work, or getting things needed for daily living: no In the past 12 mos, have been you worried that your food would run out before you had money to buy more?: never true In the past 12 mos, the food you bought just didn't last and you didn't have mon ey to buy more?: never true Smoking Status: Former smoker Do you use any of these nicotine containing products: None Second hand tobacco smoke exposure: No How often do you have a drink containing alcohol: never How often do you have six or more drinks on one occasion: Never AUDIT-C Alcohol total score: 0 Non-prescribed substance use: denies use How often does anyone, including family, friends and others, physically hurt you : never How often does anyone, including family, friends and others, insult or talk down to you: never How often does anyone, including family, friends and others, threaten you with harm: never How often does anyone, including family, friends and others, scream or curse at you: never service: No Exam Narrative: Exam Narrative: Constitutional: Appears well-developed and well-nourished. Alert. Conversant. Non toxic. HENT: Head: Atraumatic. Nose: Nose normal. Mouth/Throat: Oral mucosa is clear and moist. no trismus. Pharynx normal. Tonsils symmetric. No tonsillar enlargement, erythema, or exudate. Eyes: Conjunctivae normal. EOM normal. Pupils equal, round, and reactive to light. No scleral icterus. Neck: Normal range of motion. Neck supple. No tracheal deviation present. No JVD Cardiovascular: Tachycardic, irregularly irregular rhythm. No gallop. No friction rub. No murmur heard. Symmetric radial artery pulses Pulmonary/Chest: Effort normal. No stridor. No respiratory distress. No wheezes. No rales. No rhonchi . No tenderness. Abdominal: Soft. No distension. No mass. No tenderness. No rebound. No guarding. Musculoskeletal: RUE: Normal range of motion. No tenderness. No deformity LUE: Normal range of motion. No tenderness. No deformity RLE: Normal range of motion. No edema. No tenderness. No deformity LLE: Normal range of motion. No edema. No tenderness. No deformity Neurological: Alert and oriented to person, place, and time. Normal strength. CN II-VII intact. No sensory deficit. GCS eye subscore is 4. GCS verbal subscore is 5. GCS motor subscore is 6. Normal coordination Skin: Skin is warm and dry. No rash noted. No pallor. Normal capillary refill. Psychiatric: Normal mood. Normal affect. Const: Vital Signs, click to edit/add: Vital Signs - 24 hr 09/13/25 19:59 09/13/25 23:36 Temperature 98.2 F 98.0 F Pulse Rate [Pulse Oximeter] 132 H 91 Respiratory Rate 18 16 Blood Pressure [Ri ght Upper Arm] 148/95 H 130/75 Pulse Oximetry 95 98 Oxygen Delivery Me thod Room Air Room Air Course Course ED Course: Recheck-as nurses were preparing to give him his IV diltiazem for rate control spontaneously converted to sinus rhythm. Repeat EKG confirms sinus rhythm. Vital Signs Vital signs: Initial Vital Signs Temperature 98.2 F 09/13/25 19:59 Temperature Source Temporal Artery Scan 09/13/25 19:59 Pulse Rate 132 H 09/13/25 19:59 Respiratory Rate 18 09/13/25 19:59 Blood Pressure 148/95 H 09/13/25 19:59 Blood Pressure Mean 112 H 09/13/25 19:59 Blood Pressure Position Sitting 09/13/25 19:59 Pulse Oximetry 95 09/13/25 19:59 Oxygen Delivery Method Room Air 09/13/25 19:59 Vital Signs Temperature 98.2 F 09/13/25 19:59 Pulse Rate 132 H 09/13/25 19:59 Respiratory Rate 18 09/13/25 19:59 Blood Pressure 148/95 H 09/13/25 19:59 Pulse Oximetry 95 09/13/25 19:59 Oxygen Delivery Method Room Air 09/13/25 19:59 Temperature 98.0 F 09/13/25 23:36 Pulse Rate 91 09/13/25 23:36 Respiratory Rate 16 09/13/25 23:36 Blood Pressure 130/75 09/13/25 23:36 Pulse Oximetry 98 09/13/25 23:36 Oxygen Delivery Method Room Air 09/13/25 23:36 Medications Administered Medications: Discontinued Medications Generic Name Dose Route Start Last Admin Trade Name Freq PRN Reason Stop Dose Admin Apixaban 2.5 mg 09/13/25 23:06 09/13/25 23:24 Apixaban 5 Mg Tablet PO 09/13/25 23:07 2.5 mg ONCE ONE Administration Diltiazem HCl 10 mg 09/13/25 21:48 09/13/25 22:20 Diltiazem 5 Mg/Ml Inj IVP 09/13/25 21:49 10 mg ONCE ONE Administration Medical Decision Making MDM Narrative Medical decision making narrative: This patent presents for evaluation of palpitations, with very clear onset at this evening at around 6 or 7:00 p.m... This is consistent with atrial fibrillation with rapid ventricular response. Although this event started clearly this evening just a couple of hours prior to arrival, he actually reports that is at a few very brief episodes similar to this over the past couple of months. I think this probably represents a pattern of paroxysmal AFib and since it is not clearly new onset, I do not think he is a candidate for immediate cardioversion. We elected for rate control but before we could administered diltiazem for this patient he actually spontaneously converted back to sinus rhythm and is now asymptomatic. We did do laboratory workup to look for potential cause of his AFib. I doubt acute coronary syndrome, thyroid issues, PE, dissection, drug ingestion, acute electrolyte imbalance, etc. Labs and CXR look ok. Repeat EKG looks excellent. Asymptomatic after conversion now and would not hospitalize. Discussed with patient and the patient is in agreement. Will have him continue on his diltiazem which she has previously been on for blood pressure which would help for rate control he has more paroxysm of AFib. Recommend close follow-up with his PCP to arrange an outpatient special forces officer and further workup. Given his stroke risk I do think he needs anticoagulation. Discussed this in detail with the patient, his , and his daughter. First dose of Eliquis administered here in the ER and a prescription for 30 days of Eliquis sent to his pharmacy. Based on his age greater than 78 his dose would be 2.5 mg p.o. b.i.d.. Discussed bleeding risk. The patient and his family are well aware since his is on Coumadin. They understand the need for close follow-up, even if he is feeling well without any further episodes. Precautions for return to the ER reviewed. Lab Data Labs: Lab Results 09/13/25 Range/Units 22:00 WBC 8.75 (4.50-11.00) K/uL RBC 4.82 (4.30-5.90) m/uL Hgb 14.7 (13.5-17.5) gm/dL Hct 42.4 (37.0-53.0) % MCV 88 (80-100) fL MCH 31 (26-34) pg MCHC 35 (32-36) gm/dL RDW Coeff of Leon 12.3 (11.5-15.5) % Plt Count 226 (140-440) K/uL Neut % (Auto) 69.5 (42.0-72.0) % Lymph % (Auto) 15.2 L (20-44) % [place] % (Auto) 12.8 H (0.0-11.0) % Eos % (Auto) 1.9 (0.0-7.0) % Baso % (Auto) 0.5 (0.0-3.0) % Neut # (Auto) 6.08 (1.7-7.0) K/uL Lymph # (Auto) 1.30 (0.90-2.90) K/uL [place] # (Auto) 1.10 H (0.00-0.90) K/UL Eos # (Auto) 0.17 (0.00-0.50) K/uL Baso # (Auto) 0.04 (0.00-0.30) K/uL Abs Immat Gran (auto) 0.01 (0.00-0.30) K/uL Imm/Tot Granulo (auto) 0.1 % INR 1.06 (0.91-1.10) Sodium 136 (135-149) mmol/L Potassium 3.8 (3.6-5.1) mmol/L Chloride 102 (96-114) mmol/L Carbon Dioxide 26 (20-32) mmol/L Anion Gap 8 (7-15) mEq/L BUN 18 (7-30) mg/dL Creatinine 1.0 (0.5-1.5) mg/dL Estimated Creat Clear 50.40 Estimated GFR 76 ml/min Glucose 137 H (60-115) mg/dL Calcium 9.2 (8.4-10.6) mg/dL TSH 1.200 (0.270-4.200) uIU/mL ECG Data Attestation: I personally reviewed and interpreted this ECG as follows: Interpretation: Atrial fibrillation with rapid ventricular response Rate 114 AL interval not measurable Normal QRS axis. Nonspecific T-wave flattening but no ST segment elevation or depression. QTC 344, QTC 374 Repeat EKG Normal sinus rhythm Rate 92 AL interval 158 Normal QRS axis. No ST segment elevation or depression. Significant wandering the baseline QT 376, QTC 464 Discharge Plan Discharge Clinical Impression: AF (paroxysmal atrial fibrillation) Patient Disposition: Home, Self-Care Condition: Stable Instructions: A-fib (Atrial Fibrillation) (ED), Blood Thinners (ED) Additional Instructions: Please call Dr. Cross is office tomorrow morning to arrange an ER follow-up visit. Asked Dr. Cross to arrange an outpatient heart monitor and further workup for atrial fibrillation. Also mention your chest burning when you bicycles Dr. Cross. Asked him if you need a new stress test. In the meantime, continue on your regular medications. At the additional blood thinner twice daily to help protect you from forming blood clots and strokes. If you have any more runs of AFib, or any other symptoms such as chest pain, lightheadedness or fainting, trouble breathing, please return to the ER right away to be rechecked. Prescriptions: New Eliquis 2.5 mg tablet 2.5 mg PO BID Qty: 60 0RF No Action celecoxib 100 mg capsule 100 mg PO BID Qty: 60 3RF aspirin 81 mg capsule 81 mg PO QDAY nitroglycerin 0.4 mg tablet, sublingual 0.4 mg sublingual ONCE Rx Instructions: as a single dose; administer 5-10 minutes before situation known to precipitate angina attack isosorbide mononitrate 30 mg tablet extended release 24 hr 30 mg PO QAM ketoconazole 2 % shampoo 1 applic topical 2XW PRN (Reason: folliculitis) Qty: 120 2RF clindamycin phosphate 1 % lotion 1 applic topical DAILY Qty: 60 0RF fluocinonide 0.05 % solution 1 applic topical BID Qty: 60 1RF lidocaine 5 % adhesive patch,medicated 1 patch topical Q24H Qty: 30 3RF Rx Instructions: leave on most painful area for up to 12 hrs diltiazem HCl 360 mg capsule,extended release 24hr 360 mg PO DAILY Qty: 90 3RF amoxicillin 500 mg capsule 2,000 mg PO ONCE Qty: 4 0RF Rx Instructions: Take 4-500 mg capsules total of 2,000 mg 1 HR PRIOR TO dental APPT losartan 100 mg tablet 100 mg PO QDAY Qty: 90 2RF rosuvastatin 20 mg tablet 20 mg PO QAM Qty: 90 3RF Follow Up/Referrals: Aamir Cross MD [Primary Care Provider, Internal Medicine] Stand Alone Forms: [employer] Info Instructions
--- NOTE | 2025-09-13 21:48 | CRLHL7_ITS ---
For Patients: As a result of the Century Cures Act, medical imaging exams and procedure reports are released immediately into your electronic medical record. You may view this report before your referring provider. If you have questions, please contact your health care provider. Indication: Shortness of breath, palpitations, atrial fibrillation. Technique: Two views of the chest. Comparison: None. Findings/Impression: The heart is not abnormally enlarged. Mediastinal contours grossly within normal limits. Patchy bibasilar airspace opacification, likely reflecting atelectasis. No pleural effusion or pneumothorax. No acute osseous abnormality. Dictated by Amrik Rodriguez MD @ 09/13/2025 10:51:22 PM (Electronically Signed)
[2025-09-13] MEDS: dilTIAZem 5 MG/ML inj 10 MG IVP (22:20)
[2025-09-13 22:32] LABS: Hematocrit* 42.4 % (37.0-53.0); Hemoglobin* 14.7 gm/dL (13.5-17.5); Immature Granulocytes Abs Auto 0.01 K/uL (0.00-0.30); Immature Granulocytes Pct Auto 0.1 %; Mean Corpuscular HGB Conc 35 gm/dL (32-36); Mean Corpuscular Hemoglobin 31 pg (26-34); Mean Corpuscular Volume 88 fL (80-100); RDW Coefficient of Variation % 12.3 % (11.5-15.5); Red Blood Count* 4.82 m/uL (4.30-5.90); White Blood Count* 8.75 K/uL (4.50-11.00)
[2025-09-13 22:34] LABS: Chloride* 102 mmol/L (96-114); Potassium* 3.8 mmol/L (3.6-5.1); Sodium* 136 mmol/L (135-149)
[2025-09-13 22:37] LABS: Anion Gap 8 mEq/L (7-15); Blood Urea Nitrogen* 18 mg/dL (7-30); Calcium* 9.2 mg/dL (8.4-10.6); Carbon Dioxide* 26 mmol/L (20-32); Creatinine* 1.0 mg/dL (0.5-1.5); Est. Creatinine Clearance* 50.40; Estimated Glomerular Filt Rate 76 ml/min; Glucose* 137 mg/dL (60-115)
[2025-09-13 22:40] LABS: INR 1.06 (0.91-1.10); Prothrombin Time 14.7 Seconds
[2025-09-13 22:41] LABS: Lymphocytes Absolute Auto 1.30 K/uL (0.90-2.90); Slide Review Reflex No
[2025-09-13] MEDS: APIXABAN 5 MG TABLET 2.5 MG PO (23:24)
[2025-09-13 23:35] LABS: TSH With Reflex to FT4* 1.200 uIU/mL (0.270-4.200)
[2025-09-13 23:36] VITALS: BP 130/75; PULSE 91; RESP 16; TEMP 36.7; O2SAT 98
== END 2025-09-13 23:37 | disposition home or self-care (01) ==
PROVIDERS: Emergency Provider Emergency Medicine; PCP Internal Medicine
DX: I48.0 Paroxysmal atrial fibrillation (principal); Z79.01 Long term (current) use of anticoagulants
CPT/HCPCS: 36415; 71046; 80048; 84443; 84484; 85025; 85610; 96374; 99283; 99284; A9270